=== PATIENT | male | born 1965 ===

== ENCOUNTER 2019-11-28 06:10 | Day surgery (SDC) | payer OTHER ==
[~2019-11-28 06:10] MED LIST: ALLOPURINOL PO; AMILODIPINE PO; BRILINTA60 MG PO; GLIMEPIRIDE2 M1 PO; JANUMET XR 50-1 EAC1 PO; SYNTHROID125 MCG PO; TRICOR145 MG PO; [UNRECOGNIZED DRUG - OTHER] PO
== END 2019-11-28 16:30 | disposition home or self-care (01) ==
LOC: CIR.AMB 06:10 → ADM 09:00 → CIR.AMB 16:30
DX: N43.2 Other hydrocele (principal)